=== PATIENT | female | born 1940 | race African-American/Black ===

== ENCOUNTER 2020-03-08 06:55 | Inpatient (IN) ==
[2020-03-02 12:49] LABS: Basophils % 0.6 % (0.0-0.8); Eosinophils # 0.2 10*3/uL (0.0-0.87); Eosinophils % 4.2 % (0.00-10.9); Hematocrit 34.8 VOL% (35.7-47.0); Hemoglobin 11.5 GM/DL (12.0-16.0); Immature Granulocytes % 0.2 %; Immature Granulocytes Absolute 0.01 #; Lymphocytes # 1.8 10*3/uL (1.4-4.0); Lymphocytes % 38.1 % (21.3-54.2); Mean Corpuscular Volume 82.7 FL (87-102); Mean Platelet Volume 10.3 FL (9.6-12.0); Monocytes % 7.9 % (1.7-12.7); Platelet Count 210 T/CUMM (130-400); Red Blood Count 4.21 MC/CUMM (3.8-5.5); Red Cell Distribution Width 14.7 % (9.3-17.3); White Blood Count 4.8 T/CUMM (4-12)
[2020-03-02 13:03] LABS: Albumin 3.7 G/DL (3.4-5.0); Bilirubin,Total 0.8 MG/DL (0.2-1.0); Calcium 9.2 MG/DL (8.5-10.1); Osmolality,Calculated 283.4 MOS/KG (273-304); Total Protein 7.6 G/DL (6.4-8.3)
[2020-03-02 13:04] LABS: Partial Thromboplastin Time 29.9 SECS (23.9-33.8)
[~2020-03-08 06:55] MED LIST: VANCOMYCIN INJ 1,000 MG in SODIUM CHLORIDE 0.9% 250 ML IV ONE
[2020-03-08] MEDS ORDERED: LACTATED RINGERS 1,000 ML IV SCH (08:00)
[2020-03-08] MEDS ORDERED: ETOMIDATE 40 MG/20 ML VIAL IV ONE (08:03)
[2020-03-08] MEDS ORDERED: ROCURONIUM 50 MG/5 ML VIAL IV ONE (08:04)
[2020-03-08] MEDS ORDERED: fentaNYL 100 MCG/2 ML VIAL ONE ×2 (08:04→09:10)
[2020-03-08] MEDS ORDERED: SUCCINYLCHOLINE 200 MG/10 ML VIAL ONE (08:05)
[2020-03-08] MEDS ORDERED: LIDOCAINE 1%/EPI INJ 20 ML VIAL ONE (08:18)
[2020-03-08] MEDS ORDERED: BUPIVACAINE MPF 0.25% 30 ML VIAL ONE (08:18)
[2020-03-08] MEDS ORDERED: HEPARIN 5,000 UNIT/1 ML VIAL ONE (08:18)
[2020-03-08] MEDS ORDERED: MIDAZOLAM 2 MG/2 ML VIAL ONE (08:19)
[2020-03-08] MEDS ORDERED: ROPIVACAINE 0.5% 30 ML VIAL ONE (08:20)
[2020-03-08] MEDS ORDERED: DEXAMETHASONE 4 MG/1 ML VIAL ONE ×2 (08:20→09:46)
[2020-03-08] MEDS ORDERED: PHENYLEPHRINE 1 MG/10 ML SYRINGE IV ONE (09:25)
[2020-03-08] MEDS ORDERED: ePHEDrine 50 MG/ML VIAL ONE (09:42)
[2020-03-08] MEDS ORDERED: ONDANSETRON 4 MG/2 ML VIAL ONE (09:46)
[2020-03-08] MEDS ORDERED: PHENYLEPHRINE DRIP 20 MG/250 ML PREMIX IV ONE (09:49)
[2020-03-08] MEDS ORDERED: HEPARIN 10,000 UNIT/10 ML VIAL ONE (10:00)
[2020-03-08] MEDS ORDERED: propofoL 200 MG/20 ML VIAL IV ONE (10:21)
[2020-03-08] MEDS ORDERED: LIDOCAINE 2% 5 ML VIAL ONE (10:21)
[2020-03-08] MEDS ORDERED: ACETAMINOPHEN 1,000 MG/100 ML VIAL IV ONE (10:55)
[2020-03-08] MEDS ORDERED: NEOSTIGMINE 10 MG/10 ML VIAL ONE (11:06)
[2020-03-08] MEDS ORDERED: GLYCOPYRROLATE 0.4 MG/2 ML VIAL ONE (11:06)
[2020-03-08] MEDS ORDERED: TISSUE ADHESIVE 1 EACH APPLICATOR TOP ONE (11:19)
[2020-03-08] MEDS ORDERED: ONDANSETRON 4 MG/2 ML VIAL IV PRN (11:26)
[2020-03-08] MEDS ORDERED: KETOROLAC 30 MG/1 ML VIAL IV ONE (11:29)
[2020-03-08] MEDS ORDERED: SEVOFLURANE 1 UNIT/15 MINUTE INH ONE (11:51)
[2020-03-08] MEDS: KETOROLAC 10 MG TABLET PO SCH (14:36)
[2020-03-08] MEDS: LACTATED RINGERS 1,000 ML IV SCH ×2 (14:36→23:15)
[2020-03-08] MEDS: HYDROmorphone 2 MG/1 ML VIAL IV PRN (15:48)
[2020-03-08] MEDS: PHENOL 1.4% THROAT SPRAY 177 ML BOTTLE PO PRN ×2 (20:57→23:14)
[2020-03-08] MEDS: DOCUSATE SODIUM 100 MG CAPSULE PO SCH (20:57)
[2020-03-09] MEDS: KETOROLAC 10 MG TABLET PO SCH ×3 (00:07→13:01)
[2020-03-09 06:18] LABS: Hematocrit 29.3 VOL% (35.7-47.0); Hemoglobin 9.9 GM/DL (12.0-16.0)
[2020-03-09 06:38] LABS: Calcium 8.4 MG/DL (8.5-10.1); Osmolality,Calculated 281.8 MOS/KG (273-304)
[2020-03-09] MEDS: DOCUSATE SODIUM 100 MG CAPSULE PO SCH (08:35)
[2020-03-09] MEDS: LACTATED RINGERS 1,000 ML IV SCH (08:36)
[2020-03-09] MEDS ORDERED: CLOPIDOGREL 75 MG TABLET PO SCH (09:00)
[2020-03-09] MEDS: HYDROmorphone 2 MG/1 ML VIAL IV PRN (10:32)
[2020-03-09 11:59] VITALS: BP 154/57
== END 2020-03-09 16:53 | disposition home or self-care (01) | DRG 254 ==
LOC: N.OR 06:55 → N.SDSINP 06:56 → N.3E 12:39 → EDSTATUS 15:30
PROVIDERS: ADMIT Surgery; ATTEND Surgery